=== PATIENT | female | born 1980 | race Native Hawaiian/Other Pacific Islander ===

== ENCOUNTER 2017-09-30 21:53 | Emergency (ER) | payer OTHER ==
[~2017-09-30] VITALS: Ht 162.6 cm; Wt 74.8 kg
[2017-09-30 23:28] VITALS: BP 145/89; TEMP 98.2
== END 2017-09-30 23:30 | disposition home or self-care (01) ==
LOC: ED 21:53
DX: G43.909 Migraine, unspecified, not intractable, without status migrainosus (principal)
CPT/HCPCS: 96374; 96375; 99283; J0595; J1200; J2405

== ENCOUNTER 2017-11-03 18:13 | Emergency (ER) | payer BC ==
[~2017-11-03] VITALS: Ht 162.6 cm; Wt 72.6 kg
[2017-11-03] MEDS ORDERED: OMEP40CA PO (19:36)
[2017-11-03] MEDS ORDERED: METO25TA4 PO (19:36)
[2017-11-03] MEDS ORDERED: ALBUTEROL0.083 % IN (19:36)
[2017-11-03] MEDS ORDERED: ALBU90AE13 INH (19:37)
[2017-11-03] MEDS ORDERED: CLON1TAB18 PO (19:38)
[2017-11-04 00:27] VITALS: BP 112/76; TEMP 98.3
== END 2017-11-04 00:28 | disposition home or self-care (01) ==
LOC: ED 18:13
DX: R51 Headache (principal)
CPT/HCPCS: 96372; 99283; J2175; J2550